=== PATIENT | male | born 1970 | race Two or more races ===

== ENCOUNTER 2024-09-06 12:23 | Outpatient (OUT) | payer BC, SELFPAY ==
--- NOTE | 2024-09-06 12:29 | XR_ITS ---
The [place] [id number] Patient Name: VIANNEY JASMINE MRN: [id number] date: 1970 Sex: M Assigned Patient Location: [facility] Current Patient Location: Accession/Order Number: [id number] Exam Date: 09/06/2024 12:40 Report Date: 09/07/2024 15:17 At the request of: MICHEL MARCANO Procedure: XR lumbar spine 2-3V EXAMINATION: XR lumbar spine 2-3V HISTORY: S1 Radiculopathy On EMG, Left Leg Numbness Tingling COMPARISON: No relevant comparison available. FINDINGS: BONES: Partial sacralization of L5; developmental variation. Mild degenerative facet arthropathy L3-4 through L5-S1. Slight anterior wedging of T12. DISC SPACES: Mild narrowing L3-4, L4-5. PARASPINOUS: Negative. No paraspinous abnormality is seen. OTHER: Negative. XR/XR lumbar spine 2-3V IMPRESSION: 1. Slight anterior wedging of T12; developmental versus remote mild compression fracture. 2. Mild degenerative disc disease and facet arthropathy of lower lumbar spine. Electronically authenticated by: RICHARD CHOE Date: 09/07/2024 15:17
--- NOTE | 2024-09-06 12:41 | XR_ITS ---
The [address] [address] Patient Name: VIANNEY JASMINE MRN: [id number] date: 1970 Sex: M Assigned Patient Location: [facility] Current Patient Location: Accession/Order Number: [id number] Exam Date: 09/06/2024 12:41 Report Date: 09/07/2024 15:18 At the request of: MICHEL MARCANO Procedure: XR sacrum coccyx min 2V PROCEDURE: XR sacrum coccyx min 2V COMPARISON: None. HISTORY: S1 Numbness and Tingling FINDINGS: SACRUM: No fracture, disruption of the sacral ala line, or cortical irregularity. COCCYX: No fracture or suspicious alignment. SOFT TISSUES: No widening of the sacroiliac joints. No radiopaque foreign body. OTHER: Partial sacralization of L5 (normal variant). XR/XR sacrum coccyx min 2V IMPRESSION: 1. No fracture or significant arthropathy. 2. Unremarkable sacroiliac joints. Electronically authenticated by: RICHARD CHOE Date: 09/07/2024 15:18
== END 2024-09-06 12:24 | disposition home or self-care (01) ==
LOC: RAD 12:23
PROVIDERS: PCP Family Medicine; Visit Provider Family Medicine
DX: M54.17 Radiculopathy, lumbosacral region (principal)
CPT/HCPCS: 72100; 72220

== ENCOUNTER 2024-11-06 09:14 | Outpatient (OUT) | payer BC, SELFPAY ==
--- NOTE | 2024-11-06 09:18 | MR_ITS ---
[address] [address] Patient Name: VIANNEY JASMINE MRN: [id number] date: 1970 Sex: M Assigned Patient Location: MRI Current Patient Location: MRI Accession/Order Number: [id number] Exam Date: 11/06/2024 09:35 Report Date: 11/06/2024 11:41 At the request of: MICHEL MARCANO Procedure: MR lumbar spine wo con EXAM: MR lumbar spine wo con HISTORY: S1 Left Radiculopathy, Low Back Pain, T12 Fracture COMPARISON: 09/06/2024 TECHNIQUE: MRI images obtained with multiple sequences. MRI of the lumbar spine without contrast. Sequences obtained by standard department protocol. FINDINGS: The conus ends at L1. No abnormal signal of the terminal spinal cord. Transitional S1 vertebral body. Rudimentary S1-S2 disc. T11-T12 through L1-L2: No spinal canal stenosis or neural foraminal stenosis. L2-L3: Mild disc degeneration. Mild broad-based posterior disc bulge. No spinal canal stenosis. Right neural foramen is open. Left mild neural foraminal narrowing. Mild facet joint arthropathy. L3-L4: Mild disc degeneration. Broad-based posterior disc bulge. Moderate to severe left neural foraminal narrowing. Moderate right neural foraminal narrowing. Facet joints are normal. L4-L5: Moderate disc degeneration. Broad-based posterior disc bulge. Mild spinal canal narrowing. Facet joints are normal. Bilateral moderate neural foraminal narrowing. L5-S1: Moderate disc degeneration. Broad-based posterior disc bulge. Moderate spinal canal stenosis. Lateral recess narrowing in position to irritate the traversing bilateral S1 nerve roots. Mild facet joint arthropathy. Moderate left neural foraminal narrowing. Moderate to severe right neural foraminal narrowing. No acute bone marrow edema. Vertebral body height is preserved. MR/MR lumbar spine wo con IMPRESSION: 1. No significant spinal canal stenosis. 2. Moderate to severe neural foraminal narrowing at left L3-L4 and right L5-S1. Moderate neural foraminal narrowing at bilateral L4-L5. Moderate neural foraminal narrowing at right L3-L4 and left L5-S1. 3. No acute bone marrow edema. No acute fractures. 4. Normal alignment of the lumbar spine. 5. Other findings as described. Electronically authenticated by: MADDIE ULLOA Date: 11/06/2024 11:41
== END 2024-11-06 09:15 | disposition home or self-care (01) ==
LOC: MRI 09:14
PROVIDERS: PCP Family Medicine; Visit Provider Family Medicine
DX: M54.16 Radiculopathy, lumbar region (principal); M51.369 Other intervertebral disc degeneration, lumbar region without mention of lumbar back pain or lower extremity pain
CPT/HCPCS: 72148